=== PATIENT | female | born 1990 | race Two or more races ===

== ENCOUNTER 2019-03-13 19:49 | Emergency (ER) | payer SELFPAY ==
[~2019-03-13] VITALS: Ht 154.9 cm; Wt 57.6 kg
--- NOTE | 2019-03-13 21:24 | PHYS DOC ---
Past Medical History Past Medical History: Anxiety, Depression Past Surgical History: Hysterectomy Alcohol Use: None Drug Use: None Adult General Chief Complaint Chief Complaint: ANXIETY/PANIC ATTACK HPI HPI Patient is a 28 year old spitting female with history of chronic anxiety and depression who presents with request for medication refill. Patient states she's been out of her citalopram, 10 mg, and Klonopin, 0.5 mg for the past several days. She reports headache, feeling anxious and withdrawal symptoms from Klonopin. Patient was seen by her PCP and was told that she needed to have lab work performed before refilling prescription of Klonopin. Patient was given a prescription for citalopram one month ago which she has not filled. Patient states she is in the process of obtaining medical insurance so that obtain lab work. No other acute symptoms or complaints. Patient is [place]-speaking. A professional phone bell clerk was used. [] Review of Systems Review of Systems Review of symptoms as per history of present illness. All other review symptoms are negative. ia [] All other systems were reviewed and found to be within normal limits, except as documented in this note. Allergies Allergies Allergies Coded Allergies Type Severity Reaction Last Updated Verified No Known Drug Allergies 03/13/19 No Physical Exam Physical Exam Constitutional: Well developed, well nourished, no acute distress, non-toxic appearance. [] HENT: Normocephalic, atraumatic, bilateral external ears normal, oropharynx moist, no oral exudates, nose normal. [] Eyes: PERRLA, EOMI, conjunctiva normal, no discharge. [] Neck: Normal range of motion, no tenderness, supple, no stridor. [] Cardiovascular:Heart rate regular rhythm, no murmur [] Lungs & Thorax: Bilateral breath sounds clear to auscultation [] Abdomen: Bowel sounds normal, soft, no tenderness. [] Skin: Warm, dry. [] Back: No tenderness, no CVA tenderness. [] Extremities: No tenderness, no cyanosis, no clubbing, ROM intact, no edema. [] Neurologic: Alert and oriented X 3, normal motor function, normal sensory function, no focal deficits noted. [] Psychologic: Affect, anxious.. [] Current Patient Data Vital Signs Vital Signs Date Time Temp Pulse Resp B/P (MAP) Pulse Ox O2 Delivery O2 Flow Rate FiO2 03/13/19 20:22 98.8 65 20 117/73 (88) 100 Room Air 98.8 EKG EKG [] Radiology/Procedures Radiology/Procedures [] Course & Med Decision Making Course & Med Decision Making Pertinent Labs and Imaging studies reviewed. (See chart for details) [Patient vital signs are stable. No active signs or withdrawal other than mild headache. Tylenol treatment offered. I explained to the patient that I'm unable to refill controlled substances in the emergency department and that she needs to follow up with her primary care physician or change in PCP to have this prescription filled. In the time, she is instructed to fill the citalopram.] Dragon Disclaimer Dragon Disclaimer This electronic medical record was generated, in whole or in part, using a voice recognition dictation system. Departure Departure Impression: Primary Impression: Encounter for medication refill Disposition: HOME, SELF-CARE Condition: STABLE Patient Instructions: Medication Refill, Emergency Department Additional Instructions: We were unable to refill the prescription requested in the emergency department today. It is important that you follow up with your primary care physician for refills of all prescription medications. VINH RUSSELL DO Mar 13, 2019 21:24
[2019-03-13 21:45] VITALS: BP 116/82
== END 2019-03-13 22:06 | disposition home or self-care (01) ==
LOC: ER 19:49
DX: F41.9 Anxiety disorder, unspecified (principal); F32.9 Major depressive disorder, single episode, unspecified; Z76.0 Encounter for issue of repeat prescription; R51 Headache; Z90.89 Acquired absence of other organs
CPT/HCPCS: 99283